=== PATIENT | female | born 1980 | race African-American/Black ===

== ENCOUNTER → 2020-10-06 | Outpatient (CLI) | payer OTHER ==
[~2020-10-06] MED LIST: FOLIC ACID20 MG PO; PRENATAL TABLE1 EAC1 PO; ZYRTEC10 M3 PO
== END | disposition home or self-care (01) ==
LOC: PRENATAL 08:00
PROVIDERS: ATTEND Obstetrics & Gynecology Maternal & Fetal Medicine
DX: O35.0XX1 Maternal care for (suspected) central nervous system malformation in fetus, fetus 1 (principal); O35.3XX1 Maternal care for (suspected) damage to fetus from viral disease in mother, fetus 1; O98.512 Other viral diseases complicating pregnancy, second trimester; O09.512 Supervision of elderly primigravida, second trimester; O99.212 Obesity complicating pregnancy, second trimester; O44.02 Complete placenta previa NOS or without hemorrhage, second trimester; Z36.89 Encounter for other specified antenatal screening; Z3A.22 22 weeks gestation of pregnancy

== ENCOUNTER 2020-10-10 15:27 | Inpatient (IN) | payer OTHER ==
[~2020-10-10] VITALS: Ht 167.6 cm; Wt 96.2 kg
[2020-10-10] MEDS ORDERED: PRENATAL TABLE1 EAC1 PO (16:42)
[2020-10-10] MEDS ORDERED: FOLIC ACID20 MG PO (16:43)
[2020-10-10] MEDS ORDERED: ZYRTEC10 M3 PO (16:43)
== END 2020-10-15 11:27 | disposition home or self-care (01) | DRG 806 ==
LOC: OBS/DEL 15:27 → OB/GYN 10-11 22:11 → LDR 10-11 22:11 → OB/GYN 10-12 05:14
PROVIDERS: ADMIT Obstetrics & Gynecology; ATTEND Obstetrics & Gynecology
PROC: 3E033VJ Introduction of Other Hormone into Peripheral Vein, Percutaneous Approach (ICD-10-PCS; 2020-10-11)
PROC: 3E0P7VZ Introduction of Hormone into Female Reproductive, Via Natural or Artificial Opening (ICD-10-PCS; 2020-10-11)
PROC: 3E0DXGC Introduction of Other Therapeutic Substance into Mouth and Pharynx, External Approach (ICD-10-PCS; 2020-10-11)
PROC: 4A1HXFZ Monitoring of Products of Conception, Cardiac Rhythm, External Approach (ICD-10-PCS; 2020-10-11)
PROC: 10E0XZZ Delivery of Products of Conception, External Approach (ICD-10-PCS; principal; 2020-10-13)
DX: O03.4 Incomplete spontaneous abortion without complication (principal); O23.42 Unspecified infection of urinary tract in pregnancy, second trimester; Z37.1 Single stillbirth; O46.8X2 Other antepartum hemorrhage, second trimester; Z3A.21 21 weeks gestation of pregnancy